=== PATIENT | female | born 1995 | race American Indian/Alaskan Native ===

== ENCOUNTER 2021-08-15 15:34 | Emergency (ER) | payer SELFPAY ==
[2021-08-15] MEDS ORDERED: ONDANSETRON 4 MG/2 ML INJ IV ONE (16:45)
[2021-08-15] MEDS ORDERED: SODIUM CHLORIDE 0.9% 1000 ML 1,000 ML IV ONE (16:45)
--- NOTE | 2021-08-15 16:51 | Emergency Department Report ---
ED N/V/D HPI - General Chief complaint: Nausea/Vomiting/Diarrhea Stated complaint: DEHYDRATED,NAUSEA,VOMITTING Time Seen by Provider: 08/15/21 16:40 Source: patient Mode of arrival: Ambulatory Limitations: No Limitations - History of Present Illness Initial comments: 26-year-old female presents to ED with complaint of nausea and vomiting since last night. Patient reports she did some binge drinking on yesterday and began having some vomiting afterward. Patient reports initially having some mild abdominal pain, states that her pain has now resolved. She denies any fever. Patient denies drinking daily. However, she states that she drinks about 3 days a week. Good choices usually tequila. complaint: nausea, vomiting -: Last night Description of Vomiting: food contents Associated Abdominal Pain: Yes Location: diffuse Severity: mild Quality: cramping Consistency: intermittent Improves with: none Worsens with: none Context: alcohol abuse Associated Symptoms: denies other symptoms. denies: fever/chills - Related Data Previous Rx's Medication Instructions Recorded Last Taken Type Dicyclomine [Bentyl] 20 mg PO QID PRN #20 tablet 08/15/21 Unknown Rx Ondansetron [Zofran Odt] 4 mg PO Q8HR PRN #20 tab.rapdis 08/15/21 Unknown Rx Allergies Allergy/AdvReac Type Severity Reaction Status Date / Time No Known Allergies Allergy Unverified 08/15/21 16:26 ED Review of Systems ROS: Stated complaint: DEHYDRATED,NAUSEA,VOMITTING Other details as noted in HPI Comment: All other systems reviewed and negative Gastrointestinal: abdominal pain, nausea, vomiting Psychiatric: depression. denies: suicidal thoughts ED Past Medical Hx - Past Medical History Previous Medical History?: No - Surgical History Past Surgical History?: No - Medications Home Medications: Home Medications Medication Instructions Recorded Confirmed Last Taken Type Dicyclomine [Bentyl] 20 mg PO QID PRN #20 tablet 08/15/21 Unknown Rx Ondansetron [Zofran Odt] 4 mg PO Q8HR PRN #20 tab.rapdis 08/15/21 Unknown Rx ED Physical Exam - General Limitations: No Limitations General appearance: alert, in no apparent distress - Head Head exam: Present: atraumatic, normocephalic - Eye Eye exam: Present: normal appearance, EOMI - ENT ENT exam: Present: mucous membranes moist - Neck Neck exam: Present: normal inspection - Respiratory Respiratory exam: Present: normal lung sounds bilaterally. Absent: respiratory distress - Cardiovascular Cardiovascular Exam: Present: regular rate, normal rhythm - GI/Abdominal GI/Abdominal exam: Present: soft. Absent: distended, tenderness - Extremities Exam Extremities exam: Present: normal inspection - Neurological Exam Neurological exam: Present: alert, oriented X3 - Psychiatric Psychiatric exam: Present: normal affect, normal mood - Skin Skin exam: Present: warm, dry, intact, normal color ED Course Vital Signs 08/15/21 08/15/21 08/15/21 16:07 17:44 17:55 Temperature 99.1 F 98.8 F Pulse Rate 81 76 Respiratory 14 16 Rate Blood Pressure 134/78 Blood Pressure 128/78 [Right] O2 Sat by Pulse 100 100 100 Oximetry ED Medical Decision Making - Lab Data Result diagrams: 08/15/21 16:48 08/15/21 16:48 - Medical Decision Making 26-year-old female presents to the ED with nausea and vomiting following binge drinking. Patient reports that she drinks tequila 3 days a week. Abdomen is soft nontender on exam. Vital signs are normal. Labs show hypokalemia, mild metabolic acidosis, and liver enzyme elevation. Patient given IV fluids and Zofran here in the ED. She is feeling much better at this time. No episodes of emesis. I spoke with patient regarding alcohol cessation. Patient is agreeable to outpatient substance abuse programs. Patient feels comfortable wi th discharge at this time. Outpatient follow-up advised, return precautions given. - Differential Diagnosis Dehydration, alcohol abuse, pancreatitis Critical care attestation.: If time is entered above; I have spent that time in minutes in the direct care of this critically ill patient, excluding procedure time. ED Disposition Clinical Impression: Hypokalemia, Nausea and vomiting, Alcohol abuse Disposition: HOME / SELF CARE / HOMELESS Is pt being admited?: No Condition: Stable Instructions: Alcohol Use Disorder, Nausea and Vomiting, Adult, [id number] Referrals: PRIMARY CARE, [Primary Care Provider] - 3-5 Days [facility] [Provider Group] - 3-5 Days [facility] [Provider Group] - 3-5 Days Time of Disposition: 19:12
[2021-08-15 17:06] LABS: Basophils % (Auto) 0.2 % (0.0-1.8); Hematocrit 37.6 % (30.3-42.9); Hemoglobin 11.8 gm/dl (10.1-14.3); Lymphocytes # (Auto) 1.2 K/mm3 (1.2-5.4); Mean Corpuscular HGB Conc 31 % (30-34); Mean Corpuscular Volume 96 fl (79-97); Monocytes # (Auto) 1.4 K/mm3 (0.0-0.8); Monocytes % (Auto) 11.1 % (0.0-7.3); Platelet Count 280 K/mm3 (140-440); Red Blood Count 3.91 M/mm3 (3.65-5.03); Red Cell Distribution Width 17.5 % (13.2-15.2)
[2021-08-15 17:27] LABS: Alanine Aminotransferase 33 units/L (7-56); Bilirubin,Direct 0.3 mg/dL (0-0.2); Blood Urea Nitrogen 8 mg/dL (7-17); Calcium 9.7 mg/dL (8.4-10.2); Hemolysis Index 4
[2021-08-15 17:49] LABS: BUN/Creatinine Ratio 11
[2021-08-15] MEDS ORDERED: POTASSIUM CHLORIDE ER 20 MEQ TAB PO ONE (17:55)
[2021-08-15 19:19] VITALS: BP 124/77
== END 2021-08-15 19:44 | disposition home or self-care (01) ==
LOC: ED 15:34
DX: R11.2 Nausea with vomiting, unspecified (principal); E87.6 Hypokalemia; F10.10 Alcohol abuse, uncomplicated
CPT/HCPCS: 36415; 80048; 80076; 83690; 85025; 96361; 96374; 99283; J2405; J7030